=== PATIENT | female | born 1970 | race Caucasian/White ===

== ENCOUNTER → 2016-04-24 | Outpatient (REF) | payer BC ==
[~2016-04-24] MED LIST: CETI10TA PO; DOXY100T PO; GLUC500T PO; LORA10TA2 PO; OMEP10CASR PO; RANI15TA PO; RANI1TAB6 PO; SITA50TAB PO
== END ==
LOC: M LAB REF 12:22
PROVIDERS: ATTEND Internal Medicine
DX: D50.9 Iron deficiency anemia, unspecified (principal)

== ENCOUNTER → 2016-12-09 | Outpatient (REF) | payer BC ==
[2016-12-09 13:22] LABS: PERCENT SATURATION 2.8 % (13.2-45.0)
== END ==
LOC: M LAB REF 08:24
PROVIDERS: ATTEND Internal Medicine
DX: D50.9 Iron deficiency anemia, unspecified (principal)

== ENCOUNTER 2017-03-27 07:26 | Day surgery (SDC) | payer BC ==
[~2017-03-27] VITALS: Ht 160 cm; Wt 100.2 kg
[~2017-03-27 07:26] MED LIST changes: +ATOR1TAB19 PO; +BENA25CA4 PO; +FERR32TA PO; +GLIM1TAB; +JANU100T; +LOPE2TAB3 PO; +MAG400TA; +METF500T4 PO; +METO1TAB87; +MONT10TA2; +OMEP20CA3 PO; +TYLE500T78 PO; +VITA1CAP7 PO
[2017-03-27] MEDS ORDERED: NS 1,000 ML IV ONE (08:00)
[2017-03-27] MEDS ORDERED: PROPOFOL 200 MG/20 ML VIAL As Ordered ONE ×3 (08:43→08:55)
[2017-03-27] MEDS ORDERED: LIDOCAINE 2% INJ 100 MG/5 ML SDV (FOR ANES.) As Ordered ONE (08:44)
--- NOTE | 2017-03-27 09:02 | ROOR ---
Patient Name: Sherrell Martinez Procedure Date: 03/27/2017 8:40 AM Date of : 1970 Age: 46 Room: [facility] Gender: Female Note Status: Finalized Procedure: Upper GI endoscopy + Small bowel bx. Indications: Iron deficiency anemia Providers: Wilfredo Bliss MD Referring MD: Lorraine Jerome DO Requesting Provider: Medicines: Monitored Anesthesia Care Complications: No immediate complications. Procedure: Pre-Anesthesia Assessment: - The heart rate, respiratory rate, oxygen saturations, blood pressure, adequacy of pulmonary ventilation, and response to care were monitored throughout the procedure. The Endoscope was introduced through the mouth, and advanced to the second part of duodenum. The upper GI endoscopy was accomplished without difficulty. The patient tolerated the procedure well. Findings: The Z-line was irregular and was found 35 cm from the incisors. Multiple biopsies were obtained with cold forceps for evaluation to rule out Mccormack's Esophagus randomly at the gastroesophageal junction. A medium-sized hiatal hernia was present. Diffuse mild inflammation characterized by congestion (edema) and erythema was found in the gastric antrum. Biopsies were taken with a cold forceps for Helicobacter pylori testing. The exam of the duodenum was otherwise normal. Biopsies for histology were taken with a cold forceps in the first portion of the duodenum for evaluation of celiac disease. The exam was otherwise without abnormality. Impression: - Z-line irregular, 35 cm from the incisors. - Medium-sized hiatal hernia. - Erosive gastritis. Biopsied. - The examination was otherwise normal. - Multiple biopsies were obtained at the gastroesophageal junction. - Biopsies were taken with a cold forceps for evaluation of celiac disease. - The examination was otherwise normal. Recommendation: - Patient has a contact number available for emergencies. The signs and symptoms of potential delayed complications were discussed with the patient. Return to normal activities tomorrow. Written discharge instructions were provided to the patient. - High fiber diet. - Discharge patient to home. - Continue present medications. - Await pathology results. - Telephone GI clinic for pathology results in 1 week. - The findings and recommendations were discussed with the patient's family. Wilfredo Bliss MD Wilfredo Bliss MD 03/27/2017 9:02:33 AM This report has been signed electronically. Number of Addenda: 0 Note Initiated On: 03/27/2017 8:40 AM Estimated Blood Loss: Estimated blood loss: none.
--- NOTE | 2017-03-27 09:16 | ROOR ---
Patient Name: Sherrell Martinez Procedure Date: 03/27/2017 8:41 AM Date of : 1970 Age: 46 Room: [facility] Gender: Female Note Status: Finalized Procedure: Total Colonoscopy to Cecum Indications: Iron deficiency anemia Providers: Wilfredo Bliss MD Referring MD: Lorraine Jerome DO Requesting Provider: Medicines: Monitored Anesthesia Care Complications: No immediate complications. Procedure: Pre-Anesthesia Assessment: - The heart rate, respiratory rate, oxygen saturations, blood pressure, adequacy of pulmonary ventilation, and response to care were monitored throughout the procedure. The Colonoscope was introduced through the anus and advanced to the cecum, identified by appendiceal orifice and ileocecal valve. The colonoscopy was performed without difficulty. The patient tolerated the procedure well. The quality of the bowel preparation was excellent. Findings: The perianal and digital rectal examinations were normal. Non-bleeding internal hemorrhoids were found during retroflexion. The hemorrhoids were small and Grade I (internal hemorrhoids that do not prolapse). Scattered small-mouthed diverticula were found in the recto-sigmoid colon, sigmoid colon and descending colon. The exam was otherwise without abnormality on direct and retroflexion views. Impression: - Non-bleeding internal hemorrhoids. - Diverticulosis in the recto-sigmoid colon, in the sigmoid colon and in the descending colon. - The examination was otherwise normal on direct and retroflexion views. - No specimens collected. - The exam was otherwise normal to the cecum. Recommendation: - Patient has a contact number available for emergencies. The signs and symptoms of potential delayed complications were discussed with the patient. Return to normal activities tomorrow. Written discharge instructions were provided to the patient. - High fiber diet. - Discharge patient to home. - Continue present medications. - Repeat colonoscopy in 10 years for screening purposes. - Return to referring physician. - The findings and recommendations were discussed with the patient's family. Wilfredo Bliss MD Wilfredo Bliss MD 03/27/2017 9:15:41 AM This report has been signed electronically. Number of Addenda: 0 Note Initiated On: 03/27/2017 8:41 AM Estimated Blood Loss: Estimated blood loss: none.
[2017-03-27 09:30] VITALS: BP 131/68
== END 2017-03-27 09:55 | disposition home or self-care (01) ==
LOC: M OPP 07:26
PROVIDERS: ATTEND Internal Medicine Gastroenterology
DX: D50.9 Iron deficiency anemia, unspecified (principal); K57.30 Diverticulosis of large intestine without perforation or abscess without bleeding; K64.0 First degree hemorrhoids; K22.8 Other specified diseases of esophagus; K44.9 Diaphragmatic hernia without obstruction or gangrene; K31.89 Other diseases of stomach and duodenum; I10 Essential (primary) hypertension; E78.5 Hyperlipidemia, unspecified; E11.9 Type 2 diabetes mellitus without complications; R12 Heartburn; K21.9 Gastro-esophageal reflux disease without esophagitis; M19.90 Unspecified osteoarthritis, unspecified site; M54.9 Dorsalgia, unspecified; F41.9 Anxiety disorder, unspecified; F32.9 Major depressive disorder, single episode, unspecified; R51 Headache; R06.83 Snoring; G47.8 Other sleep disorders; Z87.891 Personal history of nicotine dependence; Z79.84 Long term (current) use of oral hypoglycemic drugs; Z79.899 Other long term (current) drug therapy

== ENCOUNTER → 2017-04-02 | Outpatient (REF) | payer BC ==
[2017-04-02 13:38] LABS: PERCENT SATURATION 8.4 % (13.2-45.0)
== END ==
LOC: M LAB REF 12:06
PROVIDERS: ATTEND Internal Medicine
DX: D50.9 Iron deficiency anemia, unspecified (principal)

== ENCOUNTER → 2017-07-16 | Outpatient (REF) | payer BC ==
[2017-07-16 13:27] LABS: FERRITIN 5 NG/ML (8-252); IRON (FE) 56 UG/DL (50-170); PERCENT SATURATION 10.4 % (13.2-45.0); TOTAL IRON BINDING CAPACITY 539 UG/DL (250-450)
== END ==
LOC: M LAB REF 12:40
DX: D50.9 Iron deficiency anemia, unspecified (principal)
CPT/HCPCS: 83550

== ENCOUNTER → 2017-09-28 | Outpatient (REF) | payer BC ==
[2017-09-28 15:52] LABS: TROPONIN I < 0.02 NG/ML (< 0.10)
== END ==
LOC: M LAB REF 14:57
DX: R07.9 Chest pain, unspecified (principal)
CPT/HCPCS: 84484

== ENCOUNTER → 2017-12-17 | Outpatient (REF) | payer BC ==
[2017-12-17 15:28] LABS: IRON (FE) 36 UG/DL (50-170); PERCENT SATURATION 6.8 % (13.2-45.0); TOTAL IRON BINDING CAPACITY 526 UG/DL (250-450)
== END ==
LOC: M LAB REF 14:22
DX: D50.9 Iron deficiency anemia, unspecified (principal)
CPT/HCPCS: 83550

== ENCOUNTER → 2018-03-11 | Outpatient (REF) | payer BC ==
[2018-03-11 12:58] LABS: IRON (FE) 93 UG/DL (50-170); PERCENT SATURATION 16.5 % (13.2-45.0); TOTAL IRON BINDING CAPACITY 563 UG/DL (250-450)
== END ==
LOC: M LAB REF 12:02
DX: D50.9 Iron deficiency anemia, unspecified (principal)
CPT/HCPCS: 83550

== ENCOUNTER → 2018-05-03 | Outpatient (CLI) | payer BC ==
[~2018-05-03] MED LIST changes: +FARX1TAB3 PO; +IMOD2TAB16 PO; -LORA10TA2 PO; +LORA10TA3 PO; -MAG400TA; +MAG400TA PO; -METO1TAB87; +METO1TAB87 PO; -MONT10TA2; +MONT10TA2 PO; +OMEP40CA2 PO; +SLEE25TA PO
--- NOTE | 2018-05-03 12:51 | REPMRS ---
Patient History The patient states she had a clinical breast exam in April 2018. Family history of unknown cancer at age 60 in mother, breast cancer at age 50 in paternal aunt. Digital Mammo Screening Bilat: May 03, 2018 - Exam #: [id number] Bilateral CC and MLO view(s) were taken. Technologist: Maryann Singh, Technologist No prior studies available for comparison. FINDINGS: There are scattered fibroglandular densities. There is a 1.1 cm well-circumscribed nodule in the left inferior breast slightly laterally at the 5 o'clock position. This merits further evaluation. There is no other evidence of dominant mass, architectural distortion, or clustered microcalcification typical of malignancy. 3-D tomosynthesis shows no additional findings. Assessment: BI-RADS/ACR category 0 mammogram, Incomplete. Need additonal imaging evaluation and/or prior mammograms for comparison. Recommendation Ultrasound and special view mammogram of the left breast. This patient's Lifetime Breast Cancer RIsk is estimated at 13.6 %. This mammogram was interpreted with the aid of an FDA-approved computer-aided dectection system. Electronically Signed By: Alistair Quintanilla MD 05/03/18 [id number]
--- NOTE | 2018-05-03 19:39 | REP ---
Clinical: Leiomyomatous changes . Technique: Transabdominal pelvic ultrasound followed by transvaginal examination for better evaluation of the endometrium and adnexa with color Doppler evaluation of the ovaries. Findings: Bladder is unremarkable and measures 13.9 x 8.3 x 10.1 cm . Heterogeneous anteverted myomatous uterus measures 13.4 x 7.0 x 8.6 cm . The endometrial complex measures 9.2 mm thickness. Anterior submucosal fibroid measures 5.9 x 5.5 x 4.7 cm. Right intramural/subserosal fibroids measure 5.7 x 5.2 x 4.6 cm, and 2.5 x 1.8 x 2.1 cm. Right ovary measures 4.1 x 2.3 x 3.7 cm and includes 2.3 cm dominant follicle. Left ovary measures 6.5 x 5.6 x 10.1 cm and includes 4.8 x 5.2 x 8.4 cm complex cyst. Doppler evaluation demonstrates normal flow to the bilateral ovaries without torsion. Right ovary RI 0.6; left ovary RI 0.5. Impression: 1. Enlarged heterogeneous myomatous uterus including 5.9 cm anterior submucosal fibroid and subserosal fibroids. 2. Large complex cyst in the left ovary. Consider reevaluation in 4-6 weeks to evaluate for resolution. Electronically Signed by Saúl Umana MD 05/03/2018 07:30 P
== END ==
LOC: M RAD 11:39
PROVIDERS: ATTEND Obstetrics & Gynecology
DX: D25.1 Intramural leiomyoma of uterus (principal)

== ENCOUNTER → 2018-05-05 | Outpatient (CLI) | payer BC ==
[~2018-05-05] MED LIST changes: +ADVI100T PO; +BACT800T5 PO; +HYDR-3713 PO; +HYDR12CA PO; +LOSA50TA88 PO; +LOSARTAN-HCTZ; +TRAZ-160 PO
--- NOTE | 2018-05-05 14:18 | REP ---
Digital diagnostic unilateral left breast mammography with CAD and focused left breast sonography: History: Baseline screening mammography from May 03, 2018 was BI-RADS category 0 incomplete because of a nodular density projecting in the left breast. Diagnostic imaging was recommended. Mammographic findings: Magnified focal spot compression CC, MLO and true ML views confirm the presence of a well-circumscribed macro lobulated nodular opacity projecting at 6 o'clock in the left breast corresponding with the screening mammographic views. This measures 1.1 cm in greatest diameter. No other mammographic abnormality. Sonographic findings: The left breast is scanned from 5 o'clock to 7 o'clock. At 6 o'clock there is a hypoechoic area measuring 1.0 x 0.5 x 0.7 cm 6.7 cm from the nipple. There is no internal Doppler flow. The lesion is not a simple cyst. It may be a fibroadenoma. Its long axis is parallel to the skin. There is no definite enhanced through transmission. Impression: BI-RADS/ACR category 4 mammogram. Suspicious abnormality - biopsy should be considered. Usually requires biopsy. BI-RADS category four suspicious left breast imaging. 1.1 cm nodule inferiorly at 6 o'clock on mammography and ultrasound. This may be a fibroadenoma but ultrasound is nonspecific. Ultrasound-guided needle biopsy is recommended with marker clip placement and post clip placement mammography. This mammogram was interpreted with the aid of an FDA-approved computer-aided detection system. The patient states she had a clinical breast exam in April 2018. The patient letter being requested is m4. This patient's estimated Tyrer-zick lifetime risk assessment for the breast cancer is 13.6 %. Electronically Signed by Steven Quintanilla MD 05/05/2018 05:17 P
== END ==
LOC: M RAD 12:09
PROVIDERS: ATTEND Obstetrics & Gynecology
DX: N63.20 Unspecified lump in the left breast, unspecified quadrant (principal); N63.23 Unspecified lump in the left breast, lower outer quadrant

== ENCOUNTER 2018-05-13 11:49 | Day surgery (SDC) | payer BC ==
[~2018-05-13] VITALS: Ht 157.5 cm; Wt 101.6 kg
[~2018-05-13 11:49] MED LIST changes: -ADVI100T PO; -BACT800T5 PO; -HYDR-3713 PO; -HYDR12CA PO; -LOSA50TA88 PO; -LOSARTAN-HCTZ; +LR 1,000 ML IV ONE; -TRAZ-160 PO
[2018-05-13] MEDS ORDERED: PROPOFOL 200 MG/20 ML VIAL As Ordered ONE (12:23)
[2018-05-13] MEDS ORDERED: ROCURONIUM BROMIDE 50 MG/5 ML VIAL As Ordered ONE ×2 (12:23→14:14)
[2018-05-13] MEDS ORDERED: fentaNYL 250 MCG/5 ML INJECTION (J3010) As Ordered ONE (12:23)
[2018-05-13] MEDS ORDERED: LIDOCAINE 2% INJ 100 MG/5 ML SDV (FOR ANES.) As Ordered ONE (12:23)
[2018-05-13] MEDS ORDERED: MIDAZOLAM INJ 2 MG/2 ML VIAL (J2250) As Ordered ONE (12:23)
[2018-05-13] MEDS ORDERED: dexameTHASONE 4 MG/ML 1ML VIAL (J1100) As Ordered ONE (12:24)
[2018-05-13] MEDS ORDERED: ONDANSETRON 4MG/2ML VIAL (J2405) As Ordered ONE ×3 (12:24→18:27)
[2018-05-13] MEDS ORDERED: METOCLOPRAMIDE INJ 10MG/2ML VIAL (J2765) As Ordered ONE (12:30)
[2018-05-13 12:35] LABS: HCG, SERUM QUALITATIVE NEGATIVE (NEGATIVE)
[2018-05-13] MEDS ORDERED: HYDROmorphone HCL 2 MG/ML 1ML VIAL (J1170) As Ordered ONE (14:46)
[2018-05-13] MEDS ORDERED: KETOROLAC 60 MG/2 ML VIAL (J1885) As Ordered ONE (17:03)
[2018-05-13] MEDS ORDERED: SUGAMMADEX SODIUM 500 MG/5 ML VIAL (BRIDION) As Ordered ONE (17:03)
[2018-05-13] MEDS ORDERED: ceFAZolin 2 GM/D5W 50 ML IV BAG (J0690 PER 500MG) As Ordered ONE (17:49)
[2018-05-13] MEDS ORDERED: MORPHINE 1MG/ML IN 0.9% NACL 100ML IV BAG As Ordered ONE (18:36)
[2018-05-13 18:55] LABS: HEMATOCRIT 32.5 % (36.0-47.0); HEMOGLOBIN 9.6 g/dl (12.0-15.5); MEAN CORPUSCULAR HEMOGLOBIN 22.2 pg (27.0-33.0); MEAN CORPUSCULAR HGB CONC 29.5 g/dl (32.0-36.5); MEAN CORPUSCULAR VOLUME 75.1 fl (80.0-96.0); PLATELET COUNT, AUTOMATED 334 10^3/uL (150-450); RED BLOOD COUNT 4.33 10^6/uL (4.00-5.40); WHITE BLOOD COUNT 16.2 10^3/uL (4.0-10.0)
[2018-05-13] MEDS ORDERED: PERCOCET 5MG/325MG TAB PO PRN (19:00)
[2018-05-13] MEDS ORDERED: METOCLOPRAMIDE INJ 10MG/2ML VIAL (J2765) IV PRN (19:00)
[2018-05-13] MEDS ORDERED: NALBUPHINE HCL 10 MG/ML AMP (J2300) IV PRN (19:00)
[2018-05-13] MEDS ORDERED: IBUPROFEN 600 MG TAB PO PRN (19:00)
[2018-05-13] MEDS ORDERED: MORPHINE 1MG/ML IN 0.9% NACL 100ML IV BAG IV PRN (19:00)
[2018-05-13] MEDS ORDERED: diphenhydrAMINE INJ 50MG/ML VIAL (J1200) IV PRN (19:00)
[2018-05-13] MEDS ORDERED: ONDANSETRON 4MG/2ML VIAL (J2405) IV PRN (19:00)
[2018-05-13] MEDS ORDERED: fentaNYL 100 MCG/2 ML INJECTION (J3010) IV PRN (19:00)
[2018-05-13] MEDS ORDERED: EPIDURAL/PCA KEYS XX PRN (19:00)
[2018-05-13] MEDS ORDERED: NALOXONE INJ 0.4 MG/1 ML VIAL (J2310) IV PRN (19:00)
[2018-05-13] MEDS ORDERED: LR 1,000 ML IV SCH (19:00)
[2018-05-13 21:00] VITALS: BP 144/71
[2018-05-13] MEDS ORDERED: HumaLOG INSULIN (NovoLOG) PER UNIT SC SCH (21:00)
[2018-05-13 21:30] VITALS: BP 124/58
--- NOTE | 2018-05-13 21:48 | RO ---
DATE OF PROCEDURE: 05/13/2018 PREOPERATIVE DIAGNOSIS: Pain, bleeding, fibroids, anemia, ovarian cyst. POSTOPERATIVE DIAGNOSIS: Pain, bleeding, fibroids, anemia, ovarian cyst. PROCEDURE: Robotic-assisted hysterectomy with bilateral salpingo-oophorectomy. There was a small injury to the descending colon, which was repaired as well. SURGEON: Dr. Elizabeth Luis UROLOGY SURGEON: Anel Cadena ANESTHESIA: General endotracheal anesthesia. DESCRIPTION OF PROCEDURE: Sherrell was brought to the operating room where sufficient general endotracheal anesthesia was induced, and she was prepped, draped and positioned in the usual sterile fashion. The uterus was very high, very well supported. I could not with the speculum see the cervix, so I reached for it and palpated it and pushed down the uterus from above, which was readily palpable abdominally. Then, grasped the cervix that way using the single tooth tenaculum and with them creating traction, we were able to then see the cervix, place the two retention sutures, secure the uterine manipulator as is typical, and also placed the Coats with the ability to backfill. Having placed the uterine manipulator and the Coats, we then turned our attention to the abdomen. A transverse semilunar incision was made below the umbilicus. Sharp and blunt dissection were continued through the subcutaneous tissues to the level of the rectus fascia, which was transversely incised, secured with #0 Vicryl retention suture, and the Krystian cannula placed into the peritoneal cavity under direct visualization. The CO2 insufflation was then begun. After adequate CO2 insufflation, the peritoneal cavity was visualized. There was no excrescence, ascites, or exudate other than there were some exophytic lesions on the ovaries. These were pictured. We did a 360-degree evaluation of the abdomen. I could find no other visible abnormalities, and some of what is on the ovaries looked actually like endometriosis, so I am not really sure what that is, but, of course, it is all going to the pathologist. As we note later in the case, we were able to remove the uterus without morcellation, so that was not an issue and the cyst came out intact. But at this point, of course, we were just looking at the uterus and ovaries, and there was some large, some subserosal, some intramural, fibroids that were quite readily discerned on visualization of the uterus. And we went ahead and placed two left-sided, one right side port, and docked the robot with the patient in Trendelenburg as is typical, and I then moved to the console for the robot work. Working from the console, I first isolated the infundibulopelvic ligament on the left side, was careful to work well away from the bowel and away from the ureter. There were some adhesions of the bowel to the left lateral sidewall. We took some of those down to facilitate this dissection and went ahead and dissected through the infundibulopelvic ligament on the left side and the round ligament, and the mesentery of the adnexa, i.e. the posterior broad ligament and then worked our way through the anterior broad ligament and began the dissection for the bladder flap. We then turned our attention to the patient's right side where similar dissection was undertaken with the infundibulopelvic ligament and the mesentery and the round ligament, and then the anterior leaflet of the broad. We had some difficulty seeing the posterior aspect of the uterus because we could just not lift it up because of its size and the fibroids etc. But we were able to create the bladder flap completely and then fill the bladder, and we were able to see with the bladder filled that we were well away from this. We were also able to see that we were above the insertion of the uterosacrals and away from the ureters. Then, with the location of the cuff, etc., identified, we went ahead and cauterized the uterine vasculature in the normal location and then made the anterior colpotomy and began the dissection around the left side. The patient had multiple extra vessels, some of which bled and the bowel was getting close, so we were trying to rotate the uterus to facilitate access to this, but there was some difficulty. We went ahead and further cauterized on the right side where there was similar redundant blood supply and stopped some of the inflow because some of the bleeding was actually backbleeding. We gradually got it under control from the right side and then worked across the front to join up where our dissection had already been, and then continued the dissection along the left side. We finally had that bleeding under control. She had a total blood loss eventually about 800 mL, definitely contributed to by the uterine vasculature and the multiple redundant developed vessels and the difficulty in getting access and avoiding the bowel. But we were able to get that under control. Then, we worked to rotate the uterus to complete the colpotomy. We were using a 30-degree down scope rather than the straight scope and used the tenaculum on the uterus to rotate it from above and to support it from below because, again, we really could not lift the cuff very effectively. We got most of that dissection done and then we were working back across the right posterior, and we were above the uterosacral away from the ureter, but with inhalation some of the bowel touched the cautery, the descending colon, because we were having trouble with pneumo as well. So, this area was marked with a #3-0 Vicryl, and we over sewed in that spot so we could come back and do a multilayer closure to resupport that area. There was no perforation of bowel, but, again, cautery touched it, so we went back to the uterus, further rotated it so we could get access to complete the colpotomy, and then the colpotomy was completed. The uterus was delivered out the vagina. We were able, with multiple gyrations of the uterus, the fibroids, and the ovaries to deliver it intact. During delivery, the right ovary did come off, but, again, that is not the one with the cyst. The cyst did not rupture. And we did, of course, remove that ovary as well. So, we had both ovaries, both tubes, and the fibroid uterus. We weighed the uterus in the room; it was 557 grams, so definitely an enlarged uterus. We then turned our attention back to closure with a lap in the vagina for pneumo retention. We went ahead and used V-Loc suture for the angle stitches and then for closure of the vaginal cuff, we also closed over the peritoneum in an effort to try to minimize infection at the cuff, especially since we had that small bowel injury. We then went back to where we had used the #3-0 Vicryl and placed a two-layer closure there, just re-supporting that tissue. Again, there was no perforation, and we just labeled where the site was. We could not actually see an abnormal looking area of bowel, but we went ahead and did a two-layer superficial closure just to reapproximate and support that area. We will just have her return to food slowly. There was never any full perforation of the bowel there and we did irrigate and watch, and there was nowhere where there was any air loss or anything like that. We then completed the case by letting the pneumo out, disconnecting the instruments, of course, and removing the ports at the umbilicus. The fascia was closed with #0 Vicryl and the skin at all four sites was closed with #3-0 Vicryl with good approximation and hemostasis achieved. Estimated blood loss for the procedure: We will say 800 mL. Fluid replacement: Crystalloid. Complications: She did have that touch of cautery to the bowel, which was oversewn but without a perforation at this point, will keep an eye out for that, and she did have more blood loss than normal, so she did have a second dose of antibiotic during the case. Dry sterile dressings were, of course, applied. Condition and Disposition: Sherrell tolerated the procedure well and was recovering in the recovery room in good condition.
[2018-05-13] MEDS: NS 0.45% 1,000 ML IV SCH (21:49)
[2018-05-13 22:30] VITALS: BP 146/79
[2018-05-13 23:30] VITALS: BP 148/73
[2018-05-14 02:00] VITALS: BP 136/72
[2018-05-14] MEDS: NS 0.45% 1,000 ML IV SCH (04:24)
[2018-05-14 06:00] VITALS: BP 118/56
[2018-05-14] MEDS: HumaLOG INSULIN (NovoLOG) PER UNIT SC SCH ×2 (07:30→12:00)
[2018-05-14] MEDS ORDERED: GLIMEPIRIDE 1 MG TABLET PO SCH (07:30)
[2018-05-14] MEDS ORDERED: LOSARTAN 50 MG TAB PO SCH (09:00)
[2018-05-14] MEDS ORDERED: hydroCHLOROthiazide 12.5 MG CAPSULE PO SCH (09:00)
[2018-05-14] MEDS ORDERED: OMEPRAZOLE 20 MG CAP PO SCH (09:00)
[2018-05-14 09:10] LABS: HEMATOCRIT 28.1 % (36.0-47.0); MEAN CORPUSCULAR HEMOGLOBIN 21.7 pg (27.0-33.0); MEAN CORPUSCULAR HGB CONC 28.5 g/dl (32.0-36.5); MEAN CORPUSCULAR VOLUME 76.4 fl (80.0-96.0); PLATELET COUNT, AUTOMATED 261 10^3/uL (150-450); RED BLOOD COUNT 3.68 10^6/uL (4.00-5.40)
[2018-05-14] MEDS ORDERED: PROMETHAZINE INJ 25 MG/ML VIAL (J2550) IV ONE (09:30)
[2018-05-14 10:13] VITALS: BP 118/68
[2018-05-14 14:00] VITALS: BP 108/52
[2018-05-14] MEDS ORDERED: HYDR12CA PO (14:47)
[2018-05-14] MEDS ORDERED: ADVI100T PO (14:47)
[2018-05-14] MEDS ORDERED: LOSA50TA88 PO (14:47)
== END 2018-05-14 16:05 | disposition home or self-care (01) ==
LOC: M SDC 11:49 → M MS5PR 20:35 → M SDC 05-14 16:05
PROVIDERS: ATTEND Obstetrics & Gynecology
DX: R10.2 Pelvic and perineal pain (principal); N93.9 Abnormal uterine and vaginal bleeding, unspecified; D25.1 Intramural leiomyoma of uterus; D25.0 Submucous leiomyoma of uterus; D25.2 Subserosal leiomyoma of uterus; N72 Inflammatory disease of cervix uteri; D64.9 Anemia, unspecified; N83.202 Unspecified ovarian cyst, left side; K91.72 Accidental puncture and laceration of a digestive system organ or structure during other procedure; E78.00 Pure hypercholesterolemia, unspecified; I10 Essential (primary) hypertension; K21.9 Gastro-esophageal reflux disease without esophagitis; J45.909 Unspecified asthma, uncomplicated; G43.909 Migraine, unspecified, not intractable, without status migrainosus; E11.9 Type 2 diabetes mellitus without complications; R00.0 Tachycardia, unspecified; M12.9 Arthropathy, unspecified; R06.83 Snoring; E66.9 Obesity, unspecified; Z68.41 Body mass index [BMI] 40.0-44.9, adult; Z79.899 Other long term (current) drug therapy; Z79.84 Long term (current) use of oral hypoglycemic drugs; Z87.891 Personal history of nicotine dependence
CPT/HCPCS: 36415; 58571; 84703; 85027; 86850; 86900; 86901; 86920; 88309; 96374; 96375; J0690; J1100; J1170; J1200; J1885; J2250; J2300; J2405; J2765; J3010

== ENCOUNTER → 2018-05-19 | Outpatient (CLI) | payer BC ==
[~2018-05-19] MED LIST changes: +ADVI100T PO; +BACT800T5 PO; +HYDR-3713 PO; +HYDR12CA PO; +LIDOCAINE 1% MDV 20ML VIAL As Ordered ONE; +LOSA50TA88 PO; +LOSARTAN-HCTZ; -LR 1,000 ML IV ONE; +TRAZ-160 PO
--- NOTE | 2018-05-19 13:46 | REP ---
Digital diagnostic unilateral left breast mammography with CAD: Two views. History: Marker clip placement views. The patient is immediately status post ultrasound-guided needle biopsy procedure. Nodular density seen inferiorly in the left breast on mammography from May 03, 2018. Findings: Craniocaudad and true ML views of the left breast were obtained. The marker clip is seen 1.3 cm superior and 2.1 cm lateral to the remaining target which appears less prominent than on the prior study. No hematoma is seen. No other mammographic finding. Impression: The marker clip is 2.1 cm lateral to and slightly superior to the biopsy site. Electronically Signed by Steven Quintanilla MD 05/19/2018 07:02 P
--- NOTE | 2018-05-19 18:44 | REP ---
ULTRASOUND GUIDED LEFT BREAST BIOPSY The procedure was performed under the direct supervision of Dr. Quintanilla The patient has a history of a 1.1 cm nodule inferiorly at the 6 o'clock position of the left breast seen on a previous ultrasound dated 05/05/2018. The risks and benefits of the procedure were explained to the patient and informed consent was obtained. The left breast nodule was localized using ultrasound guidance. The skin was prepped and draped in a sterile fashion. 1% Xylocaine was used as a local anesthetic. Using ultrasound guidance a 13-gauge suction assisted Mammotome needle was inserted and six core biopsy samples were obtained. A marker clip was placed at the biopsy site. The patient tolerated the procedure well and there were no immediate complications. After the appropriate amount of monitored convalescence the patient was discharged from the department. Reviewed by XIOMY Mancia 05/19/2018 03:24 P Electronically Signed by Steven Quintanilla MD 05/19/2018 06:35 P
== END ==
LOC: M RADPRO 11:58
PROVIDERS: ATTEND Obstetrics & Gynecology
DX: N60.22 Fibroadenosis of left breast (principal); N63.23 Unspecified lump in the left breast, lower outer quadrant; N63.24 Unspecified lump in the left breast, lower inner quadrant; Z79.84 Long term (current) use of oral hypoglycemic drugs; Z79.899 Other long term (current) drug therapy

== ENCOUNTER 2018-05-22 11:47 | Emergency (ER) | payer BC ==
[~2018-05-22] VITALS: Ht 160 cm; Wt 100.5 kg
[~2018-05-22 11:47] MED LIST changes: -BACT800T5 PO; -HYDR-3713 PO; -LIDOCAINE 1% MDV 20ML VIAL As Ordered ONE; -LOSARTAN-HCTZ; -TRAZ-160 PO
[2018-05-22] MEDS ORDERED: LOSARTAN-HCTZ (12:21)
[2018-05-22] MEDS ORDERED: TRAZ-160 PO (12:21)
[2018-05-22] MEDS ORDERED: HYDR-3713 PO (12:21)
[2018-05-22] MEDS ORDERED: diphenhydrAMINE INJ 50MG/ML VIAL (J1200) IV STA (12:58)
[2018-05-22] MEDS ORDERED: ONDANSETRON 4MG/2ML VIAL (J2405) IV ONE (13:00)
[2018-05-22] MEDS ORDERED: NS 1,000 ML IV SCH (13:00)
[2018-05-22] MEDS ORDERED: MORPHINE 2 MG/ML 1ML SYRINGE (J2270) IV ONE ×2 (13:00→15:00)
[2018-05-22 13:11] LABS: BASO # 0.1 10^3/uL (0.0-0.2); BASO % 0.7 % (0.0-1.0); EOS # 0.3 10^3/uL (0.0-0.50); EOS % 2.7 % (0.0-3.0); HEMATOCRIT 33.6 % (36.0-47.0); HEMOGLOBIN 9.9 g/dl (12.0-15.5); LYMPH # 1.8 10^3/uL (1.5-4.5); LYMPH % 17.5 % (24.0-44.0); MEAN CORPUSCULAR HEMOGLOBIN 21.7 pg (27.0-33.0); MEAN CORPUSCULAR HGB CONC 29.5 g/dl (32.0-36.5); MEAN CORPUSCULAR VOLUME 73.5 fl (80.0-96.0); MONO # 0.9 10^3/uL (0.0-0.8); MONO % 8.9 % (0.0-5.0); PLATELET COUNT, AUTOMATED 519 10^3/uL (150-450); RED BLOOD COUNT 4.57 10^6/uL (4.00-5.40); WHITE BLOOD COUNT 10.2 10^3/uL (4.0-10.0)
[2018-05-22] MEDS: GASTROGRAFIN SOLUTION 30ML PO SCH ×2 (13:38→14:01)
[2018-05-22 13:52] LABS: BLOOD UREA NITROGEN 10 MG/DL (7-18); CALCIUM LEVEL 8.7 MG/DL (8.5-10.1); CARBON DIOXIDE LEVEL 27 MEQ/L (21-32); CHLORIDE LEVEL 102 MEQ/L (98-107); CREATININE FOR GFR 0.52 MG/DL (0.55-1.30); GLOMERULAR FILTRATION RATE > 60.0 (>58); GLUCOSE, FASTING 169 MG/DL (70-100); POTASSIUM SERUM 3.8 MEQ/L (3.5-5.1); SODIUM LEVEL 135 MEQ/L (136-145)
[2018-05-22] MEDS ORDERED: MORPHINE 4 MG/ML 1ML VIAL/SYRINGE (J2270) IV ONE (15:00)
[2018-05-22] MEDS ORDERED: ISOVUE-370 76% 100ML VIAL (Q9967) As Ordered ONE (15:13)
[2018-05-22] MEDS ORDERED: BACT800T5 PO (16:22)
[2018-05-22] MEDS ORDERED: BACTRIM 160MG/800MG DS TAB PO ONE (16:30)
[2018-05-22 16:37] VITALS: BP 132/76
--- NOTE | 2018-05-23 09:01 | REP ---
CT ABDOMEN AND PELVIS WITH ORAL AND IV CONTRAST: TECHNIQUE: Axial contrast enhanced images from the lung bases to the pubic symphysis using 100 mL Isovue 370 intravenous contrast material with multiplanar reformations. Visualized lung bases demonstrate no infiltrate. The liver, spleen, adrenals, pancreas, and kidneys are unremarkable. There is no abnormal aortic aneurysm. There is no adenopathy. There is no free air or free fluid. There is an oval cyst in the right adnexal region 2.8 cm in diameter. Patient has had a recent hysterectomy. There is no evidence of pelvic abscess. Urinary bladder is mildly distended and grossly unremarkable. In the region of the umbilicus superficially is an oval area of air and fluid which measures 2.1 x 3.7 cm. I cannot exclude an abscess. IMPRESSION: Status post recent hysterectomy. No pelvic abscess. Oval cyst in the right adnexa measures 2.8 cm in diameter. In the superficial umbilical soft tissues there is a focal area of air and fluid measuring 2.1 x 3.7 cm. I cannot exclude an abscess. Electronically Signed by Eduard Shaffer MD 05/23/2018 06:49 P
== END 2018-05-22 16:40 | disposition home or self-care (01) ==
LOC: M ED 11:47
DX: T81.40XA Infection following a procedure, unspecified, initial encounter (principal); R10.9 Unspecified abdominal pain; Z90.710 Acquired absence of both cervix and uterus; Z87.891 Personal history of nicotine dependence; Z88.5 Allergy status to narcotic agent; Z79.899 Other long term (current) drug therapy; Z79.84 Long term (current) use of oral hypoglycemic drugs; Z79.891 Long term (current) use of opiate analgesic
CPT/HCPCS: 74177; 80048; 83605; 85025; 87040; 87070; 87077; 87186; 87205; 94760; 96374; 96375; 96376; 99284; J1200; J2270; J2405; Q9963; Q9967

== ENCOUNTER → 2018-07-29 | Outpatient (REF) | payer BC ==
[~2018-07-29] MED LIST changes: +BACT800T5 PO; +D-3-50003 PO; +HYDR-3713 PO; +LOSARTAN-HCTZ; +TRAZ-160 PO; -VITA1CAP7 PO
[2018-07-30 15:22] LABS: PERCENT SATURATION 6.5 % (13.2-45.0)
== END ==
LOC: M LAB REF 12:34
PROVIDERS: ATTEND Internal Medicine
DX: D50.9 Iron deficiency anemia, unspecified (principal)

== ENCOUNTER → 2018-12-16 | Outpatient (REF) | payer BC ==
[~2018-12-16] MED LIST changes: +METF-791 PO; -METF500T4 PO; -OMEP20CA3 PO; +OMEP20CA4 PO; +RANI-356 PO; -RANI1TAB6 PO; -TRAZ-160 PO; +TRAZ-252 PO
[2018-12-17 17:05] LABS: PERCENT SATURATION 35.6 % (13.2-45.0)
== END ==
LOC: M LAB REF 16:29
PROVIDERS: ATTEND Internal Medicine
DX: D64.9 Anemia, unspecified (principal)

== ENCOUNTER → 2019-08-18 | Outpatient (REF) | payer BC ==
[~2019-08-18] MED LIST changes: -GLIM1TAB; +GLIM1TAB4; -METF-791 PO; +METF-838 PO; -MONT10TA2 PO; +MONT10TA4 PO; +OMEP1CAP73 PO; -OMEP20CA4 PO; -OMEP40CA2 PO; +OMEP40CA97 PO; -RANI-356 PO; +RANI-397 PO
== END ==
LOC: M LAB REF 11:56
PROVIDERS: ATTEND Internal Medicine
DX: D50.9 Iron deficiency anemia, unspecified (principal)

== ENCOUNTER → 2019-11-11 | Outpatient (CLI) | payer BC ==
--- NOTE | 2019-12-06 14:08 | REPMRS ---
Patient History The patient states she has not had a clinical breast exam in over a year. Patient is postmenopausal. Family history of unknown cancer at age 60 in mother, breast cancer at age 50 in paternal aunt. Benign US guided breast biopsy of the left breast, May 19, 2018. No Hormone Replacement Therapy Digital Woman Screen Mammo: November 11, 2019 - Exam #: [id number] Bilateral CC and MLO view(s) were taken. Technologist: Shannon Nieto, Technologist Prior study comparison: May 19, 2018, left breast digital mammo diagnostic unilateral, performed at [facility]. May 05, 2018, left breast digital mammo diagnostic unilateral, performed at [facility]. May 03, 2018, bilateral digital mammo screening bilat, performed at [facility]. FINDINGS: The breast tissue is almost entirely fat. The Volpara volumetric breast density category is: A. There is a needle biopsy marker clip in the left breast. The previously noted nodule in the left breast is less prominent in size and density. There has been no other change in the appearance of the mammogram from the prior studies. There is no interval development of dominant mass, architectural distortion, or grouped microcalcification typical of malignancy. 3-D tomosynthesis shows no additional findings. Report was delayed due to a protracted computer network disruption experienced by this facility. Assessment: BI-RADS/ACR category 2 mammogram. Benign Findings. Recommendation Routine screening mammogram of both breasts in 1 year (for women over age 40). This patient's Lifetime Breast Cancer Risk is estimated at 12.6 %. This mammogram was interpreted with the aid of an FDA-approved computer-aided dectection system. Electronically Signed By: Alistair Quintanilla MD 12/06/19 [id number]
== END ==
LOC: M WHC 11:13
PROVIDERS: ATTEND Internal Medicine
DX: Z12.31 Encounter for screening mammogram for malignant neoplasm of breast (principal)

== ENCOUNTER → 2019-12-06 | Outpatient (CLI) | payer BC | LOC: M LABSMTC 11:00 | PROVIDERS: ATTEND Orthopaedic Surgery | DX: Z01.812 Encounter for preprocedural laboratory examination (principal); Z20.828 Contact with and (suspected) exposure to other viral communicable diseases ==

== ENCOUNTER → 2020-08-13 | Outpatient (CLI) | payer BC ==
[~2020-08-13] MED LIST changes: -MAG400TA PO; +MAGN400T35 PO; +MONT10TA10 PO; -MONT10TA4 PO
--- NOTE | 2020-08-13 21:20 | REP ---
INDICATION: UNSP ROTATR-CUFF TEAR/RUPTR OF LEFT SHOULDER, NOT TRAUMA COMPARISON: None. TECHNIQUE: Internal rotation, external rotation, and Y view. FINDINGS: No acute fracture or dislocation. The acromioclavicular and glenohumeral joints are intact. No periarticular calcifications or degenerative changes are appreciated. Sub acromial space is normal. Surrounding soft tissues are unremarkable. IMPRESSION: Normal left shoulder radiographs. <Electronically signed by Saúl Umana > 08/13/20 [id number]
== END ==
LOC: M RAD 15:20
PROVIDERS: ATTEND Nurse Practitioner Family
DX: M75.102 Unspecified rotator cuff tear or rupture of left shoulder, not specified as traumatic (principal)

== ENCOUNTER → 2020-11-22 | Outpatient (REF) | payer BC ==
[~2020-11-22] MED LIST changes: +OMEP40CA4 PO; -OMEP40CA97 PO
[2020-11-23 18:26] LABS: PERCENT SATURATION 8.8 % (13.2-45.0)
== END ==
LOC: M LAB REF 16:52
PROVIDERS: ATTEND Internal Medicine
DX: D64.9 Anemia, unspecified (principal); R53.83 Other fatigue

== ENCOUNTER → 2021-03-22 | Outpatient (REF) | payer BC ==
[~2021-03-22] MED LIST changes: +LOSA50TA28 PO; -LOSA50TA88 PO; -MONT10TA10 PO; +MONT10TA97 PO
[2021-03-22 13:28] LABS: PERCENT SATURATION 14.2 % (13.2-45.0)
== END ==
LOC: M LAB REF 12:20
PROVIDERS: ATTEND Internal Medicine
DX: D50.9 Iron deficiency anemia, unspecified (principal)

== ENCOUNTER → 2021-08-09 | Outpatient (REF) | payer BC ==
[2021-08-09 13:15] LABS: PERCENT SATURATION 18.6 % (13.2-45.0)
== END ==
LOC: M LAB REF 12:08
PROVIDERS: ATTEND Internal Medicine
DX: D50.9 Iron deficiency anemia, unspecified (principal)

== ENCOUNTER → 2021-09-20 | Outpatient (CLI) | payer BC | LOC: M WHC 12:09 | PROVIDERS: ATTEND Internal Medicine | DX: Z12.31 Encounter for screening mammogram for malignant neoplasm of breast (principal) ==

== ENCOUNTER → 2022-01-16 | Outpatient (REF) | payer BC ==
[2022-01-16 13:32] LABS: PERCENT SATURATION 9.4 % (13.2-45.0)
== END ==
LOC: M LAB REF 12:14
PROVIDERS: ATTEND Internal Medicine
DX: D50.9 Iron deficiency anemia, unspecified (principal)

== ENCOUNTER → 2022-07-24 | Outpatient (REF) | payer BC ==
[2022-07-24 15:04] LABS: FERRITIN 13.8 NG/ML (7.3-270.7)
== END ==
LOC: M LAB REF 12:27
PROVIDERS: ATTEND Internal Medicine
DX: D50.9 Iron deficiency anemia, unspecified (principal)

== ENCOUNTER → 2022-09-22 | Outpatient (CLI) | payer BC | LOC: M WHC 11:28 | PROVIDERS: ATTEND Internal Medicine | DX: Z12.31 Encounter for screening mammogram for malignant neoplasm of breast (principal); Z86.018 Personal history of other benign neoplasm ==

== ENCOUNTER → 2022-11-20 | Outpatient (CLI) | payer BC | LOC: M SOG 08:00 | PROVIDERS: ATTEND Orthopaedic Surgery | DX: M19.011 Primary osteoarthritis, right shoulder (principal) ==

== ENCOUNTER → 2023-09-29 | Outpatient (REF) | payer BC ==
[~2023-09-29] MED LIST changes: -GLIM1TAB4; +GLIM1TAB84
[2023-09-29 13:33] LABS: FERRITIN 13.4 NG/ML (7.3-270.7)
== END ==
LOC: M LAB REF 11:38
PROVIDERS: ATTEND Internal Medicine
DX: D50.9 Iron deficiency anemia, unspecified (principal)

== ENCOUNTER → 2023-10-09 | Outpatient (CLI) | payer BC | LOC: M WHC 13:08 | PROVIDERS: ATTEND Internal Medicine | DX: Z12.31 Encounter for screening mammogram for malignant neoplasm of breast (principal) ==

== ENCOUNTER → 2024-05-16 | Outpatient (REF) | payer BC ==
[2024-05-16 17:06] LABS: RSV AMPLIFICATION NEGATIVE (NEGATIVE)
== END ==
LOC: M LAB REF 16:15
PROVIDERS: ATTEND Internal Medicine
DX: R05.9 Cough, unspecified (principal)

== ENCOUNTER 2024-06-12 01:41 | Emergency (ER) | payer BC ==
[~2024-06-12] VITALS: Ht 160 cm; Wt 94.0 kg
[2024-06-12] MEDS: COMBIVENT RESPIMAT 100-20MCG INHALER 4GM INH SCH (07:34)
[2024-06-12] MEDS ORDERED: BENZ200C70 PO (09:33)
[2024-06-12] MEDS ORDERED: COMBAER6 INH (09:33)
[2024-06-12] MEDS: ACETAMINOPHEN 325 MG TAB PO ONE (09:48)
[2024-06-12 09:56] VITALS: BP 134/76; TEMP 100.2; O2SAT 97
== END 2024-06-12 09:58 | disposition home or self-care (01) ==
LOC: M ED 01:41
DX: U07.1 COVID-19 (principal); J45.901 Unspecified asthma with (acute) exacerbation; K21.9 Gastro-esophageal reflux disease without esophagitis; E11.9 Type 2 diabetes mellitus without complications; I10 Essential (primary) hypertension; Z88.5 Allergy status to narcotic agent; Z79.1 Long term (current) use of non-steroidal anti-inflammatories (NSAID); Z79.51 Long term (current) use of inhaled steroids; Z79.84 Long term (current) use of oral hypoglycemic drugs; Z79.899 Other long term (current) drug therapy